=== PATIENT | female | born 1955 | race Caucasian/White ===

== ENCOUNTER 2019-05-28 13:06 | Emergency (ER) | payer BC ==
[2019-05-28] MEDS ORDERED: IBUPROFEN 200 MG TAB PO ONE (13:52)
[2019-05-28] MEDS ORDERED: POTASSIUM CHLORIDE ELIXIR 20 MEQ/15 ML UD PO ONE (13:52)
[2019-05-28] MEDS ORDERED: diazePAM 2 MG TAB PO ONE (13:52)
--- NOTE | 2019-05-28 13:56 | RAD ---
Procedure: XR CHEST 1 VIEW Exam Date: 05/28/2019 Ordering Provider: Cam Khan Clinical Indication: right sided symptoms, possible stroke Comparison: 07/01/2013 Findings: Cardiomediastinal silhouette is within normal limits. No focal lung consolidation. No pleural effusion. No pneumothorax. No acute osseous abnormality. Impression: 1. No acute abnormality in the chest. Electronically signed by: Kwabena Sandoval MD 05/28/2019 1:54 PM BEATER MACHINE OPERATOR
--- NOTE | 2019-05-28 13:57 | CT ---
CT HEAD WITHOUT IV CONTRAST HISTORY: 64 years Female reports recurrence of previous stroke symptoms COMPARISON: July 01, 2013. TECHNIQUE: Serial tomographic images of the brain were obtained without the use of intravenous contrast. This exam was performed according to our departmental dose-optimization program, which includes automated exposure control, adjustment of the mA and/or kV according to patient size and/or use of iterative reconstruction technique. FINDINGS: Extra-axial spaces/ventricular system: Normal for patient age. Basal cisterns: Unremarkable. Herniation: None. Intracranial hemorrhage: None. Cerebral parenchyma: Unremarkable. Brainstem: Unremarkable. Cerebellum: Unremarkable. Vascular structures: Unremarkable. Sella: There are scattered atherosclerotic changes noted. Visualized orbits: Unremarkable. Paranasal sinuses/mastoid air cells: Complete opacification of the right maxillary sinus, right frontal sinus, and right anterior ethmoid air cells. Small polyp versus mucous retention cyst in the left maxillary sinus. Calvarium/skull base: Unremarkable. IMPRESSION: No evidence of an acute intracranial process. Severe right OMU distribution paranasal sinus disease. Electronically signed by: Davi Mora MD 05/28/2019 1:[address] [facility]
[2019-05-28] MEDS: ASPIRIN TABLET 325 MG TAB PO ONE ×2 (13:58→14:12)
[2019-05-28] MEDS ORDERED: AMOXICILLIN & POT CLAVULANATE 875 MG TAB PO ONE (14:19)
[2019-05-28] MEDS ORDERED: predniSONE 20 MG TAB PO ONE (14:19)
[2019-05-28] MEDS ORDERED: SODIUM CHLORIDE 0.9% 1000ML 1,000 ML IVS ONE (14:30)
--- NOTE | 2019-05-28 16:18 | CT ---
EXAM DESCRIPTION: CTA Neck (accession [id number]), CTA Head (accession [id number]) CLINICAL HISTORY: 64 years Female, return of previous stroke symptoms COMPARISON: CT of the head without contrast from the same day. TECHNIQUE: Angiographic phase multidetector CT imaging of the head and neck. Multiplanar reconstructions were generated. Maximum intensity projection imaging. Surface rendered 3-D images of the vasculature. This exam was performed according to our departmental dose-optimization program which includes automated exposure control, adjustment of the mA and/or kV according to patient size and/or use of iterative reconstruction technique. FINDINGS: CT angiogram head: There is balanced anterior and posterior circulation. No vessel cut off, aneurysm or dissection. Hypoplastic right A1 segment is incidentally noted. CT angiogram neck: Normal arch anatomy is present. No significant atherosclerotic disease is present throughout the common carotid, internal carotid or external carotid vessels. Vertebral arteries are enhancing symmetrically. There is marked ectasia of the internal carotid arteries with the right carotid artery effacing the retropharyngeal space. Other: No abnormal intracranial enhancement. No cervical lymphadenopathy. Poor dentition is present with multiple periapical lucencies. Severe right-sided chronic sinusitis as evidenced by complete opacification with osteitis right maxillary, ethmoid and frontal. IMPRESSION: Normal CT angiogram of the head and neck. Chronic right-sided sinusitis. Poor dentition with multiple periapical lucencies. Electronically signed by: Mikal Thomas MD 05/28/2019 4:17 PM HUB ASSOCIATE
--- NOTE | 2019-05-28 16:19 | CT ---
EXAM DESCRIPTION: CTA Neck (accession [id number]), CTA Head (accession [id number]) CLINICAL HISTORY: 64 years Female, return of previous stroke symptoms COMPARISON: CT of the head without contrast from the same day. TECHNIQUE: Angiographic phase multidetector CT imaging of the head and neck. Multiplanar reconstructions were generated. Maximum intensity projection imaging. Surface rendered 3-D images of the vasculature. This exam was performed according to our departmental dose-optimization program which includes automated exposure control, adjustment of the mA and/or kV according to patient size and/or use of iterative reconstruction technique. FINDINGS: CT angiogram head: There is balanced anterior and posterior circulation. No vessel cut off, aneurysm or dissection. Hypoplastic right A1 segment is incidentally noted. CT angiogram neck: Normal arch anatomy is present. No significant atherosclerotic disease is present throughout the common carotid, internal carotid or external carotid vessels. Vertebral arteries are enhancing symmetrically. There is marked ectasia of the internal carotid arteries with the right carotid artery effacing the retropharyngeal space. Other: No abnormal intracranial enhancement. No cervical lymphadenopathy. Poor dentition is present with multiple periapical lucencies. Severe right-sided chronic sinusitis as evidenced by complete opacification with osteitis right maxillary, ethmoid and frontal. IMPRESSION: Normal CT angiogram of the head and neck. Chronic right-sided sinusitis. Poor dentition with multiple periapical lucencies. Electronically signed by: Mikal Thomas MD 05/28/2019 4:17 PM FAMILY SERVICE CASEWORKER
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
[2019-05-28 17:56] VITALS: BP 151/87; TEMP 97.3; O2SAT 96
== END 2019-05-28 17:25 | disposition home or self-care (01) ==
LOC: ER 13:06
DX: J32.4 Chronic pansinusitis (principal); R20.2 Paresthesia of skin; R51 Headache; M27.2 Inflammatory conditions of jaws; M06.9 Rheumatoid arthritis, unspecified; I51.9 Heart disease, unspecified; I10 Essential (primary) hypertension; Z87.891 Personal history of nicotine dependence; Z79.899 Other long term (current) drug therapy; Z79.82 Long term (current) use of aspirin; Z88.8 Allergy status to other drugs, medicaments and biological substances
CPT/HCPCS: 36415; 70450; 70496; 70498; 71045; 80053; 81001; 82150; 82550; 82553; 83605; 83690; 83735; 83880; 84443; 84484; 85025; 85610; 85730; 87502; 93005; J7030; J7512